=== PATIENT | female | born 2000 | race Caucasian/White ===

== ENCOUNTER 2018-01-01 21:39 | Emergency (ER) | payer BC, MEDICAID ==
[~2018-01-01] VITALS: Ht 167.6 cm; Wt 61.2 kg
[2018-01-01 22:25] LABS: BILIRUBIN,URINE NEGATIVE (NEGATIVE); CLARITY,URINE CLEAR; COLOR,URINE YELLOW; GLUCOSE, URINE (UA) NEGATIVE (NEGATIVE); KETONES,URINE NEGATIVE (NEGATIVE); LEUKOCYTE ESTERASE ,URINE NEGATIVE (NEGATIVE); NITRITE,URINE NEGATIVE (NEGATIVE); PH,URINE 8 (5-9); PROTEIN,URINE NEGATIVE (NEGATIVE); UROBILINOGEN,URINE NORMAL (NORMAL)
[2018-01-01 22:49] LABS: BASOPHILS % (AUTO) 0 % (0-10); EOSINOPHILS # (AUTO) 0.2 10^3/uL (0.0-0.3); EOSINOPHILS % (AUTO) 2 % (0-10); HEMATOCRIT 39 % (35-52); HEMOGLOBIN 13.8 G/DL (11.5-16.0); LYMPHOCYTES # (AUTO) 3.2 X 10^3 (1.0-4.0); LYMPHOCYTES % (AUTO) 32 % (12-44); MEAN CORPUSCULAR HEMOGLOBIN 31 PG (25-34); MEAN CORPUSCULAR HGB CONC 35 G/DL (32-36); MEAN CORPUSCULAR VOLUME 89 FL (80-99); MEAN PLATELET VOLUME 9.1 FL (7.4-10.4); MONOCYTES # (AUTO) 1.1 X 10^3 (0.0-1.0); MONOCYTES % (AUTO) 11 % (0-12); NEUTROPHILS # (AUTO) 5.4 X 10^3 (1.8-7.8); NEUTROPHILS % (AUTO) 54 % (42-75); PLATELET COUNT 293 10^3/uL (130-400); RED CELL DISTRIBUTION WIDTH 12.3 % (10.0-14.5); WHITE BLOOD COUNT 9.9 10^3/uL (4.3-11.0)
[2018-01-01] MEDS ORDERED: NS IV 1000 ML 1,000 ML IV ONE (22:59)
[2018-01-01 23:06] LABS: ALANINE AMINOTRANSFERASE 10 U/L (0-55); ALBUMIN 4.5 GM/DL (3.2-4.5); ALKALINE PHOSPHATASE 63 U/L (40-136); BILIRUBIN,TOTAL 0.5 MG/DL (0.1-1.0); BUN/CREATININE RATIO 13; CALCIUM 9.4 MG/DL (8.5-10.1); CARBON DIOXIDE 23 MMOL/L (21-32); CHLORIDE 104 MMOL/L (98-107); CREATININE SERUM 1.01 MG/DL (0.60-1.30); GFR ESTIMATED > 60; GLUCOSE 81 MG/DL (70-105); POTASSIUM 3.6 MMOL/L (3.6-5.0); SODIUM 139 MMOL/L (135-145); TOTAL PROTEIN 7.8 GM/DL (6.4-8.2)
[2018-01-01] MEDS ORDERED: KETOROLAC 30 MG/ML VIAL IVP ONE (23:15)
--- NOTE | 2018-01-01 23:24 | ED Abdominal Pain ---
General Chief Complaint: Abdominal/GI Problems Stated Complaint: R SIDED ABD PAIN Nursing Triage Note: AMBULATORY TO ED WITH C/O OF MID TO LOWER ABD PAIN WITH N/V/D SINCE YESTERDAY. Source of Information: Patient Exam Limitations: No Limitations History of Present Illness Date Seen by Provider: Jan 01, 2018 Time Seen by Provider: 21:44 Initial Comments This 17-year-old young lady presents to the emergency room with nausea, vomiting , diarrhea, and pelvic pain and cramping. Symptoms started yesterday and she went home from work due to symptoms. She saw her doctor yesterday who felt she was likely having a viral gastroenteritis. Pain was more crampy yesterday but today is more constant. She has had no diarrhea since this morning. Nausea has been controlled by Zofran prescribed yesterday. She has no significant pain with walking. She denies any urinary changes or vaginal discharge. She is sexually active but has not had intercourse in several months. She states she has always used condoms. She has had 3 lifetime partners. She is presently on her menstrual cycle. She denies any fevers. She has never had a pelvic exam. Allergies and Home Medications Allergies Coded Allergies: Penicillins (Verified Allergy, Severe, ANAPHYLAXIS, 09/24/12) "seizure like activity" Patient Home Medication List Home Medication List Reviewed: Yes Review of Systems Review of Systems Constitutional: no symptoms reported EENTM: No Symptoms Reported Respiratory: No Symptoms Reported Cardiovascular: No Symptoms Reported Gastrointestinal: See HPI Genitourinary: No Symptoms Reported Musculoskeletal: no symptoms reported Skin: no symptoms reported Psychiatric/Neurological: No Symptoms Reported Endocrine: No Symptoms Reported Hematologic/Lymphatic: No Symptoms Reported Past Vxnrogd-Cmzure-Xiyuzl Hx Past Med/Social Hx: Reviewed Nursing Past Med/Soc Hx Patient Social History Alcohol Use: Denies Use Recreational Drug Use: No Smoking Status: Never a Smoker Recent Foreign Travel: No Contact w/Someone Who Travel: No Recent Infectious Disease Expo: No Recent Hopitalizations: No Ebola Symptoms: Denies Symptoms Listed Seasonal Allergies Seasonal Allergies: No Past Medical History Surgeries: No Respiratory: No Cardiac: No Neurological: No Reproductive Disorders: No Sexually Transmitted Disease: No HIV/AIDS: No Genitourinary: No Gastrointestinal: No Musculoskeletal: No Endocrine: No Cancer: No Psychosocial: No Integumentary: No Blood Disorders: No Adverse Reaction/Blood Tranf: No Family Medical History Reviewed Nursing Family Hx No Pertinent Family Hx Physical Exam Vital Signs Vital Signs - First Documented 01/01/18 01/01/18 22:20 23:44 Temp 98.8 Pulse 62 Resp 17 B/P (MAP) 115/81 Pulse Ox 99 Capillary Refill : Height/Weight/BMI Height: 5'6" Weight: 135lbs. oz. [id number]; 21.79 BMI Method:Stated General Appearance: WD/WN, no apparent distress HEENT: PERRL/EOMI, normal ENT inspection Neck: normal inspection Respiratory: lungs clear, normal breath sounds, no respiratory distress, no accessory muscle use Cardiovascular: regular rate, rhythm, no edema, no murmur Gastrointestinal: normal bowel sounds, soft, tenderness (mild generalized tenderness with more intense tenderness focused in the suprapubic region. Mild positive psoas bilaterally) Extremities: normal inspection, no pedal edema Neurologic/Psychiatric: qc analyst II-XII nml as tested, no motor/sensory deficits, alert, normal mood/affect, oriented x 3 Skin: normal color, warm/dry Progress/Results/Core Measures Results/Orders Lab Results Laboratory Tests Test 01/01/18 22:15 01/01/18 22:35 Range/Units Urine Color YELLOW Urine Clarity CLEAR Urine pH 8 5-9 Urine Specific [place] 1.010 L 1.016-1.022 Urine Protein NEGATIVE NEGATIVE Urine Glucose (UA) NEGATIVE NEGATIVE Urine Ketones NEGATIVE NEGATIVE Urine Nitrite NEGATIVE NEGATIVE Urine Bilirubin NEGATIVE NEGATIVE Urine Urobilinogen NORMAL NORMAL MG/DL Urine Leukocyte Esterase NEGATIVE NEGATIVE Urine RBC (Auto) NEGATIVE NEGATIVE Urine RBC NONE /HPF Urine WBC NONE /HPF Urine Squamous Epithelial Cells 2-5 /HPF Urine Crystals NONE /LPF Urine Bacteria NONE /HPF Urine Casts NONE /LPF Urine Mucus NEGATIVE /LPF Urine Culture Indicated NO White Blood Count 9.9 4.3-11.0 10^3/uL Red Blood Count 4.40 4.35-5.85 10^6/uL Hemoglobin 13.8 11.5-16.0 G/DL Hematocrit 39 35-52 % Mean Corpuscular Volume 89 80-99 FL Mean Corpuscular Hemoglobin 31 25-34 PG Mean Corpuscular Hemoglobin Concent 35 32-36 G/DL Red Cell Distribution Width 12.3 10.0-14.5 % Platelet Count 293 130-400 10^3/uL Mean Platelet Volume 9.1 7.4-10.4 FL Neutrophils (%) (Auto) 54 42-75 % Lymphocytes (%) (Auto) 32 12-44 % Monocytes (%) (Auto) 11 0-12 % Eosinophils (%) (Auto) 2 0-10 % Basophils (%) (Auto) 0 0-10 % Neutrophils # (Auto) 5.4 1.8-7.8 X 10^3 Lymphocytes # (Auto) 3.2 1.0-4.0 X 10^3 Monocytes # (Auto) 1.1 H 0.0-1.0 X 10^3 Eosinophils # (Auto) 0.2 0.0-0.3 10^3/uL Basophils # (Auto) 0.0 0.0-0.1 10^3/uL Sodium Level 139 135-145 MMOL/L Potassium Level 3.6 3.6-5.0 MMOL/L Chloride Level 104 98-107 MMOL/L Carbon Dioxide Level 23 21-32 MMOL/L Anion Gap 12 5-14 MMOL/L Blood Urea Nitrogen 13 7-18 MG/DL Creatinine 1.01 0.60-1.30 MG/DL Estimat Glomerular Filtration Rate > 60 BUN/Creatinine Ratio 13 Glucose Level 81 70-105 MG/DL Calcium Level 9.4 8.5-10.1 MG/DL Corrected Calcium 9.0 8.5-10.1 MG/DL Total Bilirubin 0.5 0.1-1.0 MG/DL Aspartate Amino Transf (AST/SGOT) 12 5-34 U/L Alanine Aminotransferase (ALT/SGPT) 10 0-55 U/L Alkaline Phosphatase 63 40-136 U/L C-Reactive Protein High Sensitivity 0.05 0.00-0.50 MG/DL Total Protein 7.8 6.4-8.2 GM/DL Albumin 4.5 3.2-4.5 GM/DL Serum Test, Qualitative NEGATIVE NEGATIVE My Orders Orders - ANTIONE CHACON MD Ua Culture If Indicated (01/01/18 21:44) Cbc With Automated Diff (01/01/18 22:42) Comprehensive Metabolic Panel (01/01/18 22:42) Hs C Reactive Protein (01/01/18 22:42) Hcg,Qualitative Serum (01/01/18 22:42) Saline Lock/Iv-Start (01/01/18 22:42) Saline Lock/Iv-Start (01/01/18 22:59) Ns Iv 1000 Ml (Sodium Chloride 0.9%) (01/01/18 22:59) Ketorolac Injection (Toradol Injection) (01/01/18 23:15) Medications Given in ED Current Medications Medications Dose Ordered Sig/Sridhar Route Start Time Stop Time Status Last Admin Dose Admin Ketorolac Tromethamine 15 mg ONCE ONCE IVP 01/01/18 23:15 01/01/18 23:16 DC 01/01/18 23:20 15 MG Sodium Chloride 1,000 ml @ 0 mls/hr Q0M ONCE IV 01/01/18 22:59 01/01/18 23:01 DC 01/01/18 23:06 999 MLS/HR Vital Signs/I&O 01/01/18 01/01/18 22:20 23:44 Temp 98.8 98.8 Pulse 62 62 Resp 17 17 B/P (MAP) 115/81 Pulse Ox 99 Urine -Bedside: Negative Progress Progress Note : Progress Note Vital signs were unremarkable. Options for workup discussed with patient and mother. Labs and UA were pursued. Patient was offered pelvic exam but declined. She wishes to pursue this with Dr. Ruelas the clinic. A liter of IV fluids was infused. Labs were unremarkable. Vital signs were normal. CT scan was deferred after discussion of risks and benefits. Toradol was given for pain control prior to dismissal. Departure Impression Primary Impression: Pelvic pain Additional Impression: Nausea vomiting and diarrhea Disposition: HOME, SELF-CARE Condition: Improved Departure-Patient Inst. Decision time for Depature: 23:15 Referrals: EMILIANO ARMENTA MD (PCP/Family) Primary Care Physician Patient Instructions: Acute Pelvic Pain Add. Discharge Instructions: Drink plenty of clear liquids. Start with a liquid diet and gradually advance your diet with small quantities of bland food as tolerated. You may take ibuprofen up to 6 or milligrams every 6 hours as needed for pain. Add Tylenol ( acetaminophen) up to 1000 mg every 6 hours as needed for additional pain relief. Follow-up with your primary care provider or a women's health provider tomorrow. Ultrasound ordered by your doctor or through the ER may be indicated for further evaluation. Your pain should be evaluated further with a pelvic exam. Return to the emergency room if symptoms are worsening, especially if your pain is intolerable with [id number] medications or you develop new symptoms such as fever over 100. You may continue using Zofran (ondansetron) as prescribed for nausea and vomiting. All discharge instructions reviewed with patient and/or family. Voiced understanding. ANTIONE CHACON MD Jan 01, 2018 23:24
== END 2018-01-01 23:45 | disposition home or self-care (01) ==
LOC: EDUNIT# 21:39 → ER 21:40
DX: R10.2 Pelvic and perineal pain (principal); R11.2 Nausea with vomiting, unspecified; R19.7 Diarrhea, unspecified; Z88.0 Allergy status to penicillin
CPT/HCPCS: 36415; 80053; 81000; 84703; 85025; 86141

== ENCOUNTER → 2020-04-20 | Outpatient (CLI) | payer BC ==
[~2020-04-20] MED LIST: ACHD5005 PO; IBUP-1773 PO
== END ==
LOC: LABNPT 11:33
PROVIDERS: ATTEND Obstetrics & Gynecology
DX: Z53.9 Procedure and treatment not carried out, unspecified reason (principal)

== ENCOUNTER 2020-04-21 06:22 | Day surgery (SDC) | payer BC ==
[~2020-04-21] VITALS: Ht 162.6 cm; Wt 74.5 kg
[2020-04-21] VITALS (11 sets, daily range): BP systolic 101–131; BP diastolic 60–81
[2020-04-21] MEDS ORDERED: fentaNYL INJECTION 100 MCG/2 ML AMP ONE (06:52)
[2020-04-21] MEDS ORDERED: MIDAZOLAM 2 MG/2 ML (VERSED) VIAL ONE (06:52)
[2020-04-21] MEDS ORDERED: SEVOFLURANE (ULTANE) 15 ML INHAL SOLN ONE (06:52)
[2020-04-21] MEDS ORDERED: LIDOCAINE PF 2% 5 ML (XYLOCAINE) VIAL ONE (06:52)
[2020-04-21] MEDS ORDERED: proPOfol 200 MG/20 ML (DIPRIVAN) VIAL IV ONE (06:52)
[2020-04-21] MEDS ORDERED: ONDANSETRON 4 MG/2 ML (SDV) Z0FRAN ONE (06:52)
[2020-04-21 07:05] LABS: BASOPHILS % (AUTO) 0 % (0-10); EOSINOPHILS # (AUTO) 0.2 10^3/uL (0.0-0.3); EOSINOPHILS % (AUTO) 2 % (0-10); HEMATOCRIT 37 % (35-52); HEMOGLOBIN 12.5 g/dL (11.5-16.0); LYMPHOCYTES # (AUTO) 2.1 10^3/uL (1.0-4.0); LYMPHOCYTES % (AUTO) 18 % (12-44); MEAN CORPUSCULAR HEMOGLOBIN 31 pg (25-34); MEAN CORPUSCULAR HGB CONC 34 g/dL (32-36); MEAN CORPUSCULAR VOLUME 92 fL (80-99); MEAN PLATELET VOLUME 9.1 fL (9.0-12.2); MONOCYTES # (AUTO) 0.9 10^3/uL (0.0-1.0); MONOCYTES % (AUTO) 8 % (0-12); NEUTROPHILS # (AUTO) 8.1 10^3/uL (1.8-7.8); NEUTROPHILS % (AUTO) 72 % (42-75); PLATELET COUNT 308 10^3/uL (130-400); WHITE BLOOD COUNT 11.4 10^3/uL (4.3-11.0)
[2020-04-21] MEDS: LACTATED RINGERS 1,000 ML IV PRN ×2 (07:06→08:26)
--- NOTE | 2020-04-21 07:09 | Progress Note-Pre Operative ---
Pre-Operative Progress Note H&P Reviewed The H&P was reviewed, patient examined and no changes noted. Date Seen by Provider: Apr 21, 2020 Time Seen by Provider: 07:05 Date H&P Reviewed: Apr 21, 2020 Time H&P Reviewed: 07:05 Pre-Operative Diagnosis: Missed EDWIN Burgess DO Apr 21, 2020 07:09
[2020-04-21] MEDS ORDERED: KETOROLAC 30 MG/ML VIAL IVP ONE (07:15)
[2020-04-21] MEDS ORDERED: D5 LR IV SOLUTION 1,000 ML IV SCH (07:15)
[2020-04-21] MEDS ORDERED: HYDROcodone/APAP 5 MG/325 MG (LORTAB) TAB PO PRN (07:15)
[2020-04-21] MEDS ORDERED: ONDANSETRON 4 MG/2 ML (SDV) Z0FRAN IVP PRN ×2 (07:15→08:15)
[2020-04-21] MEDS ORDERED: ACHD5005 PO (07:16)
[2020-04-21] MEDS ORDERED: IBUP-1773 PO (07:16)
--- NOTE | 2020-04-21 07:17 | Discharge Inst-Women's Service ---
Discharge Inst-Women's Serv Depart Medication/Instructions New, Converted or Re-Newed RX: RX on Chart Problems Reviewed?: Yes Consults/Follow Up Additional Follow Up: Yes Activity Activity: Activity as Tolerated Driving Instructions: You May Drive (do not drive while taking hydrocodone) NO SMOKING: NO SMOKING Nothing Inside Vagina: No Douching, No [place], No Tampons Symptoms to Report to : Bleeding Excessive, Pain Increased, Fever Over 101 Degrees F, Vaginal Bleeding Increase, Questions/Concerns For Any Problems or Questions: Contact Your Physician EDWIN BALDERAS DO Apr 21, 2020 07:17
[2020-04-21 07:37] LABS: BAND NEUTROPHILS 1 %; BASOPHILS % (MANUAL) 0 %; EOSINOPHILS % (MANUAL) 1 %; LYMPHOCYTES % (MANUAL) 18 %; MONOCYTES % (MANUAL) 11 %; NEUTROPHILS % (MANUAL) 69 %; RBC MORPH NORMAL
[2020-04-21] MEDS ORDERED: METHYLERGONOVINE 0.2 MG/ML (METHERGINE) AMP ONE (07:37)
[2020-04-21] MEDS ORDERED: morphine INJ 10 MG/ML 1ML (SYR OR VIAL) IVP ONE (08:15)
--- NOTE | 2020-04-21 09:11 | Anesthesia-General Post-Op ---
General Patient Condition Mental Status/LOC: Same as Preop Cardiovascular: Satisfactory Nausea/Vomiting: Absent Respiratory: Satisfactory Pain: Controlled Complications: Absent Post Op Complications Complications None Follow Up Care/Instructions Patient Instructions None needed. Anesthesia/Patient Condition Patient Condition Patient is doing well, no complaints, stable vital signs, no apparent adverse anesthesia problems. SAFIA MAHONEY DO Apr 21, 2020 09:11
--- NOTE | 2020-05-01 09:03 | OPERATIVE REPORT ---
DATE OF SERVICE: PREOPERATIVE DIAGNOSES: 1. A 20-year-old G1, P0 at less than 10 weeks' gestation. 2. Missed . POSTOPERATIVE DIAGNOSES: 1. A 20-year-old G1, P0 at less than 10 weeks' gestation. 2. Missed . PROCEDURE PERFORMED: Suction D and C. SURGEON: Henri Patel DO. ANESTHESIA: LMA general. ESTIMATED BLOOD LOSS: 250 mL. URINE OUTPUT: 50 mL clear at the end of the procedure. FLUIDS: 1000 mL of lactated Ringer's solution. FINDINGS: A moderate amount of products of conception, grossly normal. Normal appearing external female genitalia. SPECIMEN SENT: Products of conception. INDICATIONS FOR PROCEDURE: This 20-year-old female is a patient that was seen in my office with a gestational sac noted in the uterus on ultrasound; however, her hCG levels were falling and she was also having some light spotting. I discussed with the patient the diagnosis of threatened versus missed AB. I discussed with the patient a passage of on her own at home versus proceeding with suction D and C. Risks of the procedure were discussed with the patient in detail with her significant other present. After all their questions were answered, consent was obtained in the preoperative area, the patient was taken to the operating room. OPERATIVE REPORT IN DETAIL: Once in the operating room, anesthesia was found to be adequate. She was placed in a dorsal lithotomy position, prepped and draped in a normal sterile fashion. A timeout was performed. A weighted speculum was inserted to the patient's vagina. A right angle retractor was used to visualize the cervix it is grasped at 12 o'clock position using a long Allis clamp. There were products of conception and large blood clot noted at the cervical os, which were collected and sent with products of conception. I then gently sounded the uterine cavity and it was found to be approximately 7 cm. I then gently dilated the cervix using Hanks dilators to a maximum dilatation approximately 1 cm, at which point, I placed a #6 rigid curved Fayette suction curette into the endometrial cavity. I applied the Fayette suction to a pressure of 15 mmHg, at which point, I methodically cleared the endometrial cavity on several passes of all products of conception and debris. After all of this was collected and bleeding had significantly slowed down, I performed a very gentle curetting using a medium size endometrial curette. There were no appreciable retained products at that point and there was minimal to scant bleeding noted. I then removed all the instruments from the patient's vagina and performed a straight catheterization. The patient tolerated the procedure well and sent to recovery in a stable condition. Lap and sponge counts were correct at the end of the procedure. Instrument counts were correct as well. Job ID: [id number] DocumentID: [id number] Dictated Date: 05/01/2020 07:55:57 [employer] Manager Consultant Date: 05/01/2020 09:01:59 Dictated By: DO ANDREW JACKSON
== END 2020-04-21 10:00 | disposition home or self-care (01) ==
LOC: SDC 06:22
PROVIDERS: ATTEND Obstetrics & Gynecology
DX: O02.1 Missed abortion (principal); Z3A.10 10 weeks gestation of pregnancy; Z88.0 Allergy status to penicillin
CPT/HCPCS: 36415; 85007; 85027; 86850; 86870; 86900; 86901; 87081; 88305; 88342